=== PATIENT | female | born 1985 | race Two or more races ===

== ENCOUNTER 2020-11-10 21:21 | Emergency (ER) | payer MEDICAID ==
[~2020-11-10] VITALS: Ht 154.9 cm; Wt 70.0 kg
[2020-11-10 21:23] VITALS: BP 119/81
--- NOTE | 2020-11-10 21:56 | NUR ---
ASSUNED CARE OF PT AT THIS TIME, PT TO CT
[2020-11-10] MEDS ORDERED: HYDROcodone/APAP 5/325 TABLET PO ONE (22:00)
[2020-11-10] MEDS ORDERED: HYDROcodone/APAP 5/325 TABLET ONE (22:08)
== END 2020-11-10 22:56 | disposition home or self-care (01) ==
LOC: ED 21:46
DX: S83.92XA Sprain of unspecified site of left knee, initial encounter (principal); X50.0XXA Overexertion from strenuous movement or load, initial encounter; Y93.89 Activity, other specified; Y92.410 Unspecified street and highway as the place of occurrence of the external cause; Y99.8 Other external cause status
CPT/HCPCS: 29505; 99283

== ENCOUNTER 2020-12-22 14:18 | Emergency (ER) | payer MEDICAID ==
[~2020-12-22] VITALS: Ht 152.4 cm; Wt 66.1 kg
--- NOTE | 2020-12-22 15:03 | NUR ---
TASK RN: PA at bedside.
[2020-12-22] MEDS ORDERED: KETOROLAC 30 MG/1 ML ONE (15:12)
[2020-12-22] MEDS ORDERED: ACETAMINOPHEN 500 MG TABLET ONE (15:12)
[2020-12-22 15:21] VITALS: BP 113/72
--- NOTE | 2020-12-22 15:21 | NUR ---
Medicated per eMAR.
[2020-12-22] MEDS ORDERED: ACETAMINOPHEN 500 MG TABLET PO ONE (15:30)
[2020-12-22] MEDS ORDERED: KETOROLAC 30 MG/1 ML IM ONE (15:30)
== END 2020-12-22 15:31 | disposition home or self-care (01) ==
LOC: ED 15:15
DX: S83.92XA Sprain of unspecified site of left knee, initial encounter (principal); X58.XXXA Exposure to other specified factors, initial encounter; Y93.89 Activity, other specified; Y92.89 Other specified places as the place of occurrence of the external cause; Y99.8 Other external cause status
CPT/HCPCS: 96372; 99283; J1885

== ENCOUNTER 2021-04-13 00:53 | Emergency (ER) | payer MEDICAID ==
[~2021-04-13] VITALS: Ht 152.4 cm; Wt 65.1 kg
--- NOTE | 2021-04-13 02:27 | NUR ---
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
[2021-04-13] MEDS ORDERED: ERYTHROMYCIN OPHTH 0.5%, 1GM EACHEYE ONE (02:30)
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
[2021-04-13] MEDS ORDERED: PROPARACAINE OPHTH 0.5%, 15ML ONE (02:46)
[2021-04-13] MEDS ORDERED: FLUORESCEIN OPHTHALMIC 1 MG STRIP EACHEYE ONE (03:00)
[2021-04-13] MEDS ORDERED: PROPARACAINE OPHTH 0.5%, 15ML EACHEYE ONE (03:00)
[2021-04-13 03:05] VITALS: BP 117/69
--- NOTE | 2021-04-13 03:34 | NUR ---
Patient/Caregiver given discharge instructions and they have confirmed that they understand the instructions. Patient ambulatory with steady gait. NAD, all questions answered appropriately, denies additional needs at this time. No personal belongings left in room after discharge. pt given taxi voucher for safe dc.
== END 2021-04-13 03:35 | disposition home or self-care (01) ==
LOC: ED 03:08
DX: H10.212 Acute toxic conjunctivitis, left eye (principal)
CPT/HCPCS: 99283